=== PATIENT | female | born 1980 | race Caucasian/White ===

== ENCOUNTER → 2017-08-26 19:44 | Observation (INO) ==
[2017-08-26 16:01] LABS: Bilirubin,Urine Negative (Negative); Blood,Urine Negative (Negative); Clarity,Urine Clear (Clear); Color,Urine Yellow (Yellow); Glucose,Urine (UA) Normal (Normal); Ketones,Urine Negative (Negative); Leukocyte Esterase,Urine Negative (Negative); Nitrite,Urine Negative (Negative); PH,Urine 6.5 pH Units (5.0-8.0); Protein,Urine Negative (Neg-Trace); Specific Gravity,Urine < 1.005 (1.010-1.025); Urobilinogen,Urine Normal (Normal)
[2017-08-26 16:06] LABS: Amphetamine Screen,Urine Negative ng/mL (Cutoff=1000); Barbiturate Screen,Urine Negative ng/mL (Cutoff=200); Benzodiazepines Screen,Urine Negative ng/mL (Cutoff=200); Cannabinoid Screen,Urine Negative ng/mL (Cutoff = 50); Cocaine Screen,Urine Negative ng/mL (Cutoff= 300); Opiate Screen,Urine Negative ng/mL (Cutoff=300); Phencyclidine Screen,Urine Negative ng/mL (Cutoff=25)
[2017-08-26 16:54] LABS: Candida DNA Not Detected (Not Detect); Gardnerella DNA ***DETECTED*** (Not Detect); Trichomonas DNA Not Detected (Not Detect)
--- NOTE | 2017-08-26 19:33 | OB/GYN Progress Note ---
Date of Encounter: 08/26/17 Time of Encounter: 19:25 - Assessment and Plan (1) 31 weeks gestation of Current Visit: Yes Status: Acute FHT tracing reassuring for GA. (2) Placenta previa antepartum in third trimester Current Visit: Yes Status: Acute Complete previa again documented by ultrasound today. Pt has not had any bleeding other than occasional spotting. Precautions given. (3) uterine contractions in third trimester, antepartum Current Visit: Yes Status: Acute Contractions have decreased in frequency and intensity since arrival to triage. FFN negative. Cervical length 3.8. Discharge home with PTL and placenta previa precautions. (4) Bacterial vaginosis Current Visit: Yes Status: Acute Rx flagyl Subjective - Subjective Interval history: 36 year-old presenting at 31 weeks with c/o contractions. She reports the contractions have occurred for the last 2 weeks intermittently. She states they will be every few minutes for about an hour twice per day. They get stronger when she walks but ease up when she rests. She has a known placenta previa but has not had any more than spotting this . No bleeds. Good FM. She does admit to increased, thin, white discharge. No other complaints. Antepartum ROS: movement normal, contractions, no loss of fluid, no vaginal bleeding Objective - Exam FHR: category 1 FHR comments: NST reactive for GA Abdomen: Present: soft, gravid. Absent: tenderness Uterus: Absent: tenderness Cervical dilation: visually closed Comments: SSE with thin, white discharge in vault. Cervix visually closed. Nabothean cyst noted. FFN, vaginosis panel, and pap smear collected. - Labs Labs: Abnormal lab results Ur Specific [place] < 1.005 (1.010-1.025) L 08/26/17 15:20 [place] DNA Probe DETECTED (Not Detect) A 08/26/17 16:00
[~2017-08-26 19:44] MED LIST: Ringers Solution, Lactated 1,000 ML IVC ONE; Ringers Solution, Lactated 1,000 ML ONE
== END | disposition home or self-care (01) ==
LOC: 1NENULAB
PROVIDERS: ADMIT Obstetrics & Gynecology; ATTEND Obstetrics & Gynecology

== ENCOUNTER → 2017-09-21 18:15 | Observation (INO) ==
[2017-09-21 15:18] LABS: Bilirubin,Urine Negative (Negative); Blood,Urine Negative (Negative); Clarity,Urine Clear (Clear); Color,Urine Yellow (Yellow); Glucose,Urine (UA) 100 mg/dL (Normal); Ketones,Urine Negative (Negative); Leukocyte Esterase,Urine Negative (Negative); Nitrite,Urine Negative (Negative); Protein,Urine Negative (Neg-Trace); Specific Gravity,Urine 1.011 (1.010-1.025); Urobilinogen,Urine Normal (Normal)
--- NOTE | 2017-09-21 15:38 | OB/GYN History & Physical ---
Date of Encounter: 09/21/17 Time of Encounter: 15:10 Assessment and Plan (1) 34 weeks gestation of Current visit: Yes Status: Acute (2) uterine contractions in third trimester, antepartum Current visit: No Status: Acute - NST assessment. - CBC - UDS - UA - Urine chlamydia/Gonorrhea test. (3) Vision changes Current visit: Yes Status: Acute BP upon arrival was normotensive. - PIH labs. - UA. - Monitor BP (4) Placenta previa antepartum in third trimester Current visit: No Status: Acute History of Present Illness Chief complaint: Uterine contractions and vision changes HPI: Ms. Boyd is a 36 year old female at 34 5/7 weeks gestation with a PMH of a posterior placenta previa that presents for contractions and vision changes. She says that she has been feeling unusual contractions since 4:00 am yesterday. Her contractions are not regular but are usually 20 minutes apart. The length of the contractions are concerning for her, stating that they last up to 20 minutes sometimes. She denies that the contractions are painful. She also states that the contractions can be alleviated or made worse with positional change. Patient is also complaining of vision changes for the past week. She denies any accompanying BILLS and states she starts to see stars. They come about when she is has been lying in bed. She also says that she starts to get short of breath when her vision changes occur and can also feel her heart racing. She says that she has been under alot of stress lately due to the and being put on bed rest due to the placenta previa. She also says she has trouble being able to sleep throughout her . She was prescribed vistaril for her anxiety but states that she hasn't been taking them for the past 2 weeks. She admits to good movement. She denies vaginal fluid leakage or bleeding. She denies chest pain. She admits to nausea throughout her , but denies vomiting. She denies fever, diarrhea, or dysuria. HepBSAg: non-reactive (05/19/17) HIV Ag/Ab: non-reactive T. Pallidum Ab: negative Rubella Ab: positive Varicella Ab: positive Blood Type: O+ Past Med Surg Social Fam HX - Past Medical History Medical history: other Psychiatric history: anxiety, depression, PTSD - Past Surgical History Surgical History: non-contributory - Social History Smoking Status: Current every day smoker Smokeless Tobacco Status: No Alcohol use: none Drug use: none - Family History Mother Living Status: Still Living Hx Family Cardiac Disorders: Yes (hypertension) Hx Family Endocrine Disorder: Yes (hyperthyroidism) Obstetrical History - Pregnancies : 9 Para: 3 Term: 3 : 0 Ab's: 5 Livin Medications and Allergies Famotidine [Pepcid] 20 mg PO DAILY 09/21/17 [History] Ferrous Sulfate [Iron] 325 mg PO DAILY 09/21/17 [History] HydrOXYzine Pamoate [Vistaril] 50 mg PO HS PRN 09/21/17 [History] Vits #90/Iron Fum/FA [ Formula Tablet] 1 each PO DAILY [History] 3 Allergy/AdvReac Type Severity Reaction Status Date / Time meperidine [From Demerol] Allergy burning Verified 05/04/17 21:05 sensation in veins Exam - Vital Signs Vital signs: BP 109/59 HR: 114 - Constitutional Constitutional: well developed, well nourished, no acute distress, average body habitus - Lungs Respiratory exam: CTAB - Cardiovascular Cardiovascular exam: +S1, +S2, tachycardia (Borderline tachycardia. ) - Abdomen Abdomen: Present: bowel sounds normal, gravid, non tender - Extremities Extremities exam: full ROM, normal capillary refill, normal inspection, radial pulses palpable and symmetrical Deep Tendon Reflex Grade: 2+ Normal - Cervix Dilation: 0 (Closed) Results Abnormal lab results Urine Glucose (UA) 100 mg/dL (Normal) H 09/21/17 15:00 All other labs normal. - VTE Reasons for not Prescribing Prophylaxis: Treatment not Indicated - Low risk for VTE
[2017-09-21 16:49] LABS: Amphetamine Screen,Urine Negative ng/mL (Cutoff=1000); Barbiturate Screen,Urine Negative ng/mL (Cutoff=200); Benzodiazepines Screen,Urine Negative ng/mL (Cutoff=200); Cannabinoid Screen,Urine Negative ng/mL (Cutoff = 50); Cocaine Screen,Urine Negative ng/mL (Cutoff= 300); Opiate Screen,Urine Negative ng/mL (Cutoff=300); Phencyclidine Screen,Urine Negative ng/mL (Cutoff=25)
--- NOTE | 2017-09-21 18:01 | Discharge Summary ---
Outpatient Proc Discharge Plan - Plan Prescriptions: Zolpidem [Ambien] 10 mg PO HS PRN #7 tablet PRN Reason: Insomnia Home Medications: Famotidine [Pepcid] 20 mg PO DAILY 09/21/17 [History] Ferrous Sulfate [Iron] 325 mg PO DAILY 09/21/17 [History] HydrOXYzine Pamoate [Vistaril] 50 mg PO HS PRN 09/21/17 [History] Vits #90/Iron Fum/FA [ Formula Tablet] 1 each PO DAILY [History] Zolpidem [Ambien] 10 mg PO HS PRN #7 tablet 09/21/17 [Rx]
[~2017-09-21 18:15] MED LIST changes: +Betamethasone Acet/SodPhos 6 MG/ML MDV IM ONE; -Ringers Solution, Lactated 1,000 ML IVC ONE; -Ringers Solution, Lactated 1,000 ML ONE; +hydrOXYzine pamoate 25 MG CAPSULE PO ONE
[2017-09-21 20:46] LABS: Creatinine,Urine 27 mg/dL; Protein/Creatinine Ratio,Urine 0.26 mg/mg (0-0.20)
== END | disposition home or self-care (01) ==
LOC: 1NENULAB
PROVIDERS: ADMIT Obstetrics & Gynecology; ATTEND Obstetrics & Gynecology

== ENCOUNTER 2017-09-28 00:48 | Inpatient (IN) ==
[2017-09-27 17:53] LABS: Basophils # 0.1 K/mcL (0.0-0.2); Basophils % 0.5 %; Eosinophils # 0.4 K/mcL (0.0-0.6); Eosinophils % 1.9 %; Hematocrit 32.2 % (35.3-44.9); Hemoglobin 10.9 g/dL (11.5-15.4); Immature Granulocytes % 1.7 % (0-4); Lymphocytes # 3.9 K/mcL (0.6-4.6); Mean Corpuscular HGB Conc 33.9 g/dL (31.6-35.5); Mean Corpuscular Hemoglobin 28.5 pg (28.0-33.3); Mean Corpuscular Volume 84.1 fL (83.0-100.0); Mean Platelet Volume 9.5 fL (9.4-12.4); Monocytes # 1.8 K/mcL (0.0-1.3); Monocytes % 8.8 %; Neutrophils # 14.1 K/mcL (1.6-8.9); Platelet Count 501 K/mcL (140-400); Red Blood Count 3.83 M/mcL (3.82-4.97); Red Cell Distribution Width 13.7 % (11.5-14.5); Segmented Neutrophils % 68.1 %
[2017-09-27 18:16] LABS: Bilirubin,Urine Negative (Negative); Blood,Urine Negative (Negative); Clarity,Urine Cloudy (Clear); Color,Urine Yellow (Yellow); Glucose,Urine (UA) Normal (Normal); Ketones,Urine Negative (Negative); Leukocyte Esterase,Urine Negative (Negative); Nitrite,Urine Negative (Negative); PH,Urine 6.5 pH Units (5.0-8.0); Protein,Urine Negative (Neg-Trace); Specific Gravity,Urine 1.013 (1.010-1.025); Urobilinogen,Urine Normal (Normal)
[2017-09-27 18:17] LABS: Bacteria,Urine Few per hpf (None-Few); Hyaline Casts,Urine None Seen per lpf (None-Few); RBC,Urine 0-3 per hpf (0-3); Squamous Epithelial Cell,Urine Many per lpf (None-Few); WBC,Urine 0-3 per hpf (0-3)
[2017-09-27 18:19] LABS: Amphetamine Screen,Urine Negative ng/mL (Cutoff=1000); Barbiturate Screen,Urine Negative ng/mL (Cutoff=200); Benzodiazepines Screen,Urine Negative ng/mL (Cutoff=200); Cannabinoid Screen,Urine Negative ng/mL (Cutoff = 50); Cocaine Screen,Urine Negative ng/mL (Cutoff= 300); Opiate Screen,Urine Negative ng/mL (Cutoff=300); Phencyclidine Screen,Urine Negative ng/mL (Cutoff=25)
--- NOTE | 2017-09-27 18:46 | Anesthesia Evaluation PreOp ---
Date of Encounter: 09/27/17 Time of Encounter: 18:43 - Past History Planned Operation: csection Cardiac History: Denies any Significant Hx Pulmonary History: Smoker (1 pack per day), Asthma TRIMMER SAWYER History: Denies Any Significant HX Other Medical History: GERD, Other (PTSD) Anesthesia History: No Prior Anesthetic Complications, Past Anesthesia (Breast implantation, abdominoplasty, left wrist) : Yes (35 plus 4, ) Alcohol Use: none Drug use: none Medications and Allergies Famotidine [Pepcid] 20 mg PO DAILY 09/21/17 [History] Ferrous Sulfate [Iron] 325 mg PO DAILY 09/21/17 [History] HydrOXYzine Pamoate [Vistaril] 50 mg PO HS PRN 09/21/17 [History] Vits #90/Iron Fum/FA [ Formula Tablet] 1 each PO DAILY [History] Zolpidem [Ambien] 10 mg PO HS PRN #7 tablet 09/21/17 [Rx] 3 Allergy/AdvReac Type Severity Reaction Status Date / Time meperidine [From Demerol] Allergy burning Verified 09/27/17 17:49 sensation in veins - Meds/Allergy Pre-op Review Medications Reviewed: Yes Allergies Reviewed: Yes Beta Blockers on Current Med List: No Anesthesia Results - Labs 09/27/17 17:38 Anesthesia Exam bp 125/80 hr 121 rr 20 Height: 60 Weight: 75 NPO (# of Hours): pumplin pie at noon - HEENT Pupil (Motor): Pupils equal Mallampati: II Teeth: Normal Oral Opening: Greater than 3 - TRIMMER SAWYER LOC: Oriented TRIMMER SAWYER Motor: Normal RUE, Normal LUE, Normal RLE, Normal LLE, Normal Face TRIMMER SAWYER Sensory: Normal: RUE, LUE, RLE, LLE, Face - Cardiac Rhythm: Regular Murmur: None JVD: No Carotid Bruit: No - Pulmonary Breath Sounds: bilateral Clear Respiratory Effort: Symmetrical Anesthesia Assess/Plan ASA Score: 2 Modified [place] Scale for Level of Consciousness: Cooperative, oriented, and tranquil Anesthetic Plan: Regional Monitoring Plan: Standard Monitors Recovery Plan: PACU
--- NOTE | 2017-09-27 19:33 | OB/GYN History & Physical ---
Date of Encounter: 09/27/17 Time of Encounter: 19:29 Assessment and Plan (1) 35 weeks gestation of Current visit: Yes Status: Acute Prob list: vasa previa, 35+ weeks gestation I counseled patient that given the fact that she is having painful contractions , with a BPP 05/01 and her vasa previa, I don't see any benefit of keeping her beto since she has been scheduled for this Wednesday. Consent documenting risks of surgery signed, Labs including type and cross sent Anesthesia informed History of Present Illness Chief complaint: ctxs HPI: Ms. Boyd is a 36 year old female who presents to labor and delivery from the office after a non reactive NST and BPP 04/29 (2 off for breathing). She has vasa previa and was scheduled to be delivered on 10/01. She is reporting painful contractions, no LOF or bleeding, she has a previa that is now posterior. Past Med Surg Social Fam HX - Past Medical History Medical history: asthma Psychiatric history: anxiety, depression, PTSD, other - Past Surgical History Surgical History: non-contributory - Social History Smoking Status: Current every day smoker Packs per day: 4-5 cigs daily Smokeless Tobacco Status: No Alcohol use: none Drug use: none - Family History Mother Adopted: No Living Status: Still Living Hx Family Cardiac Disorders: Yes (htn) Hx Family Endocrine Disorder: Yes (hyperthyroidism) Obstetrical History - Pregnancies : 9 Para: 3 Ab's: 5 Livin Medications and Allergies Famotidine [Pepcid] 20 mg PO DAILY 09/21/17 [History] Ferrous Sulfate [Iron] 325 mg PO DAILY 09/21/17 [History] HydrOXYzine Pamoate [Vistaril] 50 mg PO HS PRN 09/21/17 [History] Vits #90/Iron Fum/FA [ Formula Tablet] 1 each PO DAILY [History] Zolpidem [Ambien] 10 mg PO HS PRN #7 tablet 09/21/17 [Rx] 3 Allergy/AdvReac Type Severity Reaction Status Date / Time meperidine [From Demerol] Allergy burning Verified 09/27/17 17:49 sensation in veins Review of System OB All systems PM: reviewed and no additional remarkable complaints except as stated Exam - Constitutional Constitutional: well developed - HEENT HEENT: PERRL - Neck Neck exam: full ROM - Lungs Respiratory exam: CTAB - Cardiovascular Cardiovascular exam: RRR - Abdomen Abdomen: Present: gravid - Extremities Extremities exam: normal inspection Results Result Diagrams: 09/27/17 17:38 Abnormal lab results WBC 20.7 K/mcL (4.3-11.1) H 09/27/17 17:38 Hgb 10.9 g/dL (11.5-15.4) L 09/27/17 17:38 Hct 32.2 % (35.3-44.9) L 09/27/17 17:38 Plt Count 501 K/mcL (140-400) H 09/27/17 17:38 Neutrophils # 14.1 K/mcL (1.6-8.9) H 09/27/17 17:38 Monocytes # 1.8 K/mcL (0.0-1.3) H 09/27/17 17:38 Urine Clarity Cloudy (Clear) A 09/27/17 18:04 Ur Squamous Epith Cells Many per lpf (None-Few) H 09/27/17 18:04 All other labs normal. - VTE Reasons for not Prescribing Prophylaxis: Treatment not Indicated - Low risk for VTE
--- NOTE | 2017-09-27 21:48 | OB/GYN Procedure Note ---
Section - Date of procedure: 09/27/17 Preop diagnosis: other (Vasa previa) Post-op diagnosis: same Procedure: section, primary low transverse Surgeon: Hanny Donald Estimated blood loss (cc): 900 Anesthesiologist: Wesly Garner [employer] Professor: Keven Sky Anesthesia Type: Spinal section complications: none Disposition: L&D Recovery Room Specimens: Cord blood, Cord gasses - (s) A Delivery Date: 09/27/17 Delivery Time: 20:32 Presentation: transverse lie Gender: Male Viability: Viable Shoulder Dystocia: not encountered Placenta: spontaneous Cord: 3 umbilical vessels - Narrative Narrative: Patient was brought to the operating room and was given satisfactory spinal anesthesia. The abdomen was prepped and draped in a sterile fashion. A Pfannenstiel incision was made and carried sharply down to the level of fascia. The fascia was incised transversely. The fascia was dissected away from the underlying rectus muscles. With sharp and blunt dissection, rectus muscles were divided in midline. The perineum was entered bluntly. The incision was carried vertically with scissors. Transverse incision was made across the bladder peritoneum. The bladder was dissected away from the underlying lower uterine segment. Bladder retractor was placed to protect the bladder. The lower uterine segment was entered sharply with a scalpel. Incision was manually extended. Clear amniotic fluid was encountered. was noted to be transverse and with careful maneuvers, the infant's head was pulled up and delivered. The cord was clamped and cut. The was passed off to the nurses, APGARS 2/7. Placenta was extracted completely and found to be intact. Uterus was explored and found to be empty. Uterus was delivered through the abdominal incision and massaged vigorously. Intravenous Pitocin was administered. Clamps were placed about the margins of the uterine incision, which was closed primarily with a running locking stitch of 0 Vicryl with adequate hemostasis. Secondary running locking stitch was placed for extra strength to the wound. The uterus was returned to its proper anatomic position in the abdomen. The fascia was closed with a simple running stitch of 0 vicryl. The subcutaneous tissue was closed with 3-0 vicryl. The skin was closed with running subcuticular of 4-0 vicryl. Uterus was expressed of its contents. Patient was brought to the recovery room in satisfactory condition. There were no complications. There was 1000 cc of blood loss. All sponge, needle, and instrument counts were reported to be correct.
[2017-09-27] MEDS: *HR* HYDROmorphone (PF) 1 MG/ML SYRINGE IVP PRN ×3 (21:55→22:50)
[2017-09-27 23:13] LABS: Basophils % 0.3 %; Immature Granulocytes % 1.5 % (0-4); Mean Corpuscular Volume 85.4 fL (83.0-100.0); Mean Platelet Volume 9.2 fL (9.4-12.4)
[2017-09-27 23:15] LABS: Basophils # 0.1 K/mcL (0.0-0.2); Eosinophils # 0.1 K/mcL (0.0-0.6); Eosinophils % 0.3 %; Hematocrit 24.5 % (35.3-44.9); Hemoglobin 8.1 g/dL (11.5-15.4); Lymphocytes # 3.8 K/mcL (0.6-4.6); Lymphocytes % 11.5 %; Mean Corpuscular HGB Conc 33.1 g/dL (31.6-35.5); Mean Corpuscular Hemoglobin 28.2 pg (28.0-33.3); Monocytes # 1.3 K/mcL (0.0-1.3); Monocytes % 3.8 %; Neutrophils # 27.4 K/mcL (1.6-8.9); Platelet Count 279 K/mcL (140-400); Red Blood Count 2.87 M/mcL (3.82-4.97); Red Cell Distribution Width 13.7 % (11.5-14.5); Segmented Neutrophils % 82.6 %
[2017-09-27 23:34] LABS: Platelet Estimate Normal (Normal)
[~2017-09-28 00:48] MED LIST changes: +*HR* Midazolam HCl 2 MG/2 ML VIAL IVP ONE; +*HR* Midazolam HCl 2 MG/2 ML VIAL ONE; +*HR* Promethazine 25 MG/ML VIAL IVP PRN; +Acetaminophen IV 1,000 MG/100 ML INFUS..BTL IVPB ONE; -Betamethasone Acet/SodPhos 6 MG/ML MDV IM ONE; +Betamethasone Acet/SodPhos 6 MG/ML MDV IM SCH; +EPHEDrine 50 MG/ML VIAL ONE; +Ketorolac 30 MG/ML VIAL IVP ONE; +Metoclopramide 10 MG/2 ML VIAL IVP PRN; +Ondansetron 4 MG/2 ML VIAL IVP ONE; +Ondansetron 4 MG/2 ML VIAL IVP PRN; +Oxytocin 20 units/ LR 1000 mL 20 UNIT/1,000 ML BAG IVC ONE; +Oxytocin 20 units/ LR 1000 mL 20 UNIT/1,000 ML BAG IVC SCH; +Ringers Solution, Lactated 1,000 ML IVC ONE; +Ringers Solution, Lactated 1,000 ML ONE; +Sennosides 8.6 MG TABLET PO PRN; +Simethicone 80 MG TAB.CHEW PO PRN; -hydrOXYzine pamoate 25 MG CAPSULE PO ONE
[2017-09-28 01:34] LABS: Basophils # 0.1 K/mcL (0.0-0.2); Basophils % 0.3 %; Hematocrit 23.1 % (35.3-44.9); Hemoglobin 7.9 g/dL (11.5-15.4); Immature Granulocytes % 1.2 % (0-4); Lymphocytes # 2.1 K/mcL (0.6-4.6); Lymphocytes % 6.8 %; Mean Corpuscular HGB Conc 34.2 g/dL (31.6-35.5); Mean Corpuscular Hemoglobin 28.9 pg (28.0-33.3); Mean Corpuscular Volume 84.6 fL (83.0-100.0); Mean Platelet Volume 9.2 fL (9.4-12.4); Monocytes # 2.1 K/mcL (0.0-1.3); Monocytes % 6.7 %; Neutrophils # 26.5 K/mcL (1.6-8.9); Platelet Count 257 K/mcL (140-400); Red Blood Count 2.73 M/mcL (3.82-4.97); Red Cell Distribution Width 13.6 % (11.5-14.5)
[2017-09-28] MEDS: *HR* OxyCODONE/APAP 5/325 TABLET PO PRN ×2 (01:57→05:35)
[2017-09-28 02:01] LABS: Platelet Estimate Normal (Normal)
[2017-09-28] MEDS ORDERED: 0.9 % Sodium Chloride 1,000 ML ONE (02:27)
[2017-09-28] MEDS: Ibuprofen 600 MG TABLET PO PRN ×2 (08:23→21:35)
[2017-09-28] MEDS ORDERED: cefOXitin 2,000 MG in Water for inj. (sterile) 10 ML IVP SCH ×2 (09:00→16:00)
[2017-09-28] MEDS ORDERED: MetroNIDAZOLE 500 MG/100 ML 500 MG/100 ML BAG IVPB SCH ×2 (09:00→16:00)
--- NOTE | 2017-09-28 09:40 | OB/GYN Progress Note ---
Date of Encounter: 09/28/17 Time of Encounter: 09:38 - Assessment and Plan (1) Status post delivery Current Visit: Yes Status: Acute Patient POD #1 section for placental/vasa previa. Patient reports minimal lochia. She isresting comfortably. Pain meds wearing off too soon. /pumping well. -Increase percocet from 5 to 10. -Advance diet as tolerated. (2) Anemia Current Visit: Yes Status: Acute Patient's pallor has improved. She reports her dizziness and lightheadedness has improved. Hemoglobin stablized after surgery (8.1 to 7.9). Patient is still tachycardic, though improving. Most recent blood pressure 95/63. She just received her second unit of PRBC. -FU H and H at 1300. -Continue to trend vitals. Qualifiers: Anemia type: other cause Other causes of anemia: acute posthemorrhagic Qualified Code(s): D62 - Acute posthemorrhagic anemia (3) Leukocytosis Current Visit: Yes Status: Acute Likely secondary to antepartum steroid administration. -Due to patient's blood loss and transfusion, we will administer antibiotics inlcuding mefoxin and flagyl, despite her lack of fever to cover for potential infection. Qualifiers: Leukocytosis type: unspecified Qualified Code(s): D72.829 - Elevated white blood cell count, unspecified Subjective - Subjective Principal diagnosis: Vasa Previa/ S/P Delivery Interval history: 36 yo female s/p for vasa previa and painful contractions. Patient reports inadequate pain control. She wishes to see her baby. She states her dizziness and lightheadedness has improved since transfusion. She does report exhaustion. Patient reports: appetite normal, voiding normally, pain poorly controlled, ambulating normally : in NICU, nursing well (CPAP in NICU) Objective - Vital Signs Latest vital signs: Vital Signs Temp Pulse Resp BP Pulse Ox 09/28/17 08:45 97.8 F 117 16 93/55 96 09/28/17 08:00 98.5 F 109 14 111/72 95 09/28/17 06:59 97.7 F 114 18 105/66 98 09/28/17 06:16 97.9 F 18 101/60 97 09/28/17 05:48 98.7 F 122 20 91/50 96 09/28/17 05:44 98.7 F 122 20 91/50 96 09/28/17 04:51 98.1 F 118 20 102/71 95 09/28/17 03:07 98.2 F 20 107/68 09/28/17 02:52 97.6 F 92/61 97 09/28/17 02:03 98.7 F 138 20 95/61 96 09/28/17 01:18 98.6 F 142 20 100/67 96 09/28/17 00:45 97.7 F 144 18 94/61 97 Intake and Output 09/27/17 09/28/17 09/28/17 23:59 07:59 15:59 Intake Total 1133 / 1133 375 / 375 Output Total 275 / 275 Balance 858 / 858 375 / 375 Intake: Oral 800 / 800 Blood Product 333 / 333 375 / 375 Rbcs Leuko Poor As-1 Unit 333 / 333 [id number] Rbcs Leuko Poor As-1 Unit 0 / 0 375 / 375 [id number] Output: Catheter 275 / 275 Other: Weight 75.7 kg - Exam Lungs: bilateral: normal Chest: Normal S1, Normal S2 Extremities: Present: normal. Absent: edema Abdomen: Present: soft, tenderness Incision: Present: other (Did not visually inspect the incision as patient has abdominal binder in place with post operative dressing.) Uterus: Present: normal, firm. Absent: bogginess, tenderness Fundal Height: 0 (At the umbilicus) - Labs Labs: Laboratory Results - last 24 hr 09/27/17 09/27/17 09/27/17 17:38 17:38 18:04 WBC 20.7 H RBC 3.83 Hgb 10.9 L Hct 32.2 L MCV 84.1 MCH 28.5 MCHC 33.9 RDW 13.7 Plt Count 501 H MPV 9.5 Immature Gran % 1.7 Seg Neutrophils % 68.1 Lymphocytes % 19.0 Monocytes % 8.8 Eosinophils % 1.9 Basophils % 0.5 Neutrophils # 14.1 H Lymphocytes # 3.9 Monocytes # 1.8 H Eosinophils # 0.4 Basophils # 0.1 Platelet Estimate Urine Color Urine Clarity Urine pH Ur Specific [place] Urine Protein Urine Glucose (UA) Urine Ketones Urine Blood Urine Nitrite Urine Bilirubin Urine Urobilinogen Ur Leukocyte Esterase Urine Microscopic RBC Urine Microscopic WBC Ur Squamous Epith Cells Urine Bacteria Hyaline Casts Ur Culture Indicated? Urine Opiates Screen Negative Ur Barbiturates Screen Negative Ur Phencyclidine Scrn Negative Ur Amphetamines Screen Negative U Benzodiazepines Scrn Negative Urine Cocaine Screen Negative U Marijuana (THC) Screen Negative Blood Type O POSITIVE Antibody Screen NEGATIVE Crossmatch See Detail 09/27/17 09/27/17 09/28/17 18:04 23:02 01:15 WBC 33.2 H* D 31.2 H* RBC 2.87 L 2.73 L Hgb 8.1 L D 7.9 L Hct 24.5 L 23.1 L MCV 85.4 84.6 MCH 28.2 28.9 MCHC 33.1 34.2 RDW 13.7 13.6 Plt Count 279 257 MPV 9.2 L 9.2 L Immature Gran % 1.5 1.2 Seg Neutrophils % 82.6 85.0 Lymphocytes % 11.5 6.8 Monocytes % 3.8 6.7 Eosinophils % 0.3 0.0 Basophils % 0.3 0.3 Neutrophils # 27.4 H 26.5 H Lymphocytes # 3.8 2.1 Monocytes # 1.3 2.1 H Eosinophils # 0.1 0.0 Basophils # 0.1 0.1 Platelet Estimate Normal Normal Urine Color Yellow Urine Clarity Cloudy A Urine pH 6.5 Ur Specific [place] 1.013 Urine Protein Negative Urine Glucose (UA) Normal Urine Ketones Negative Urine Blood Negative Urine Nitrite Negative Urine Bilirubin Negative Urine Urobilinogen Normal Ur Leukocyte Esterase Negative Urine Microscopic RBC 0-3 Urine Microscopic WBC 0-3 Ur Squamous Epith Cells Many H Urine Bacteria Few Hyaline Casts None Seen Ur Culture Indicated? NO Urine Opiates Screen Ur Barbiturates Screen Ur Phencyclidine Scrn Ur Amphetamines Screen U Benzodiazepines Scrn Urine Cocaine Screen U Marijuana (THC) Screen Blood Type Antibody Screen Crossmatch Attestation Statement - Attestation Attestation: I examined this patient and my medical decision-making was reviewed with the Resident Physician. I agree with the documented findings, disposition and treatment plan as described. Yolie Rankin CNM
[2017-09-28] MEDS ORDERED: cefOXitin 2,000 MG in Water for inj. (sterile) 10 ML IVPB SCH (09:45)
[2017-09-28] MEDS: *HR* OxyCODONE/APAP 10/325 TABLET PO PRN ×3 (09:48→21:33)
--- NOTE | 2017-09-28 11:56 | Event Note ---
Date of Encounter: 09/28/17 Time of Encounter: 11:55 Patient's nurse notes that she is beginning to have an extreme increase in anxiety. With her history of PTSD and anxiety, I am placing a psych consult.
[2017-09-28 12:37] LABS: Basophils # 0.1 K/mcL (0.0-0.2); Basophils % 0.2 %; Hematocrit 25.7 % (35.3-44.9); Hemoglobin 8.9 g/dL (11.5-15.4); Immature Granulocytes % 1.3 % (0-4); Lymphocytes # 2.8 K/mcL (0.6-4.6); Lymphocytes % 11.8 %; Mean Corpuscular HGB Conc 34.6 g/dL (31.6-35.5); Mean Corpuscular Hemoglobin 29.4 pg (28.0-33.3); Mean Corpuscular Volume 84.8 fL (83.0-100.0); Mean Platelet Volume 9.5 fL (9.4-12.4); Monocytes # 2.7 K/mcL (0.0-1.3); Monocytes % 11.4 %; Neutrophils # 18.1 K/mcL (1.6-8.9); Nucleated Red Blood Cells 0.2 /100 WBC (0); Platelet Count 202 K/mcL (140-400); Red Blood Count 3.03 M/mcL (3.82-4.97); Red Cell Distribution Width 13.3 % (11.5-14.5); Segmented Neutrophils % 75.3 %
--- NOTE | 2017-09-28 17:22 | Consult Note ---
Date of Encounter: 09/28/17 Time of Encounter: 17:13 Assessment & Recommendation (1) Post traumatic stress disorder (PTSD) Current visit: Yes Status: Acute Assessment & Recommendation: Discussed multiple options but client's preference is to restart low dose Klonopin on an as needed basis given her success with this medication in the past. She is aware this is a L3 medication and a lot of time was spent discussing the risks and benefits. is in agreement with starting a low dose of this medication. Client intends to breast feed at this time. Spoke with Addressing Machine Operator who is in agreement with client receiving treatment. Recommend 0.5mg daily as needed for extreme anxiety with outpatient [facility]. History of Present Illness Requesting Physician: Hanny Donald MD Reason for consult: Anxiety History of present illness: Ms. Boyd is a 36 year old female with a psych history significant for PTSD. She has been under the care of Psychiatrists in the past but has not received any treatment since February. She stopped medications due to . Her son was just born at 35 weeks. She is now experiencing extreme anxiety and wants to restart meds. She denies SI/HI and has no thoughts of harming herself, her son, or anyone else. However, her anxiety is to the point that she is unsure if she can adequately care for him. She does intend to breast feed. Her son was born early at 35 weeks. However, after speaking with the Addressing Machine Operator it seems that her son is no less capable of tolerating meds in breast milk than a full term baby. Discussed options with client. Most all psych meds are L2 and L3 with the majority falling into the L3 category. Reviewed the L2 options including SSRIs and Seroquel. Client was not interested due to poor clinical responses in the past. Client reported the most success with Klonopin. Has taken high doses in the past.....client remembers up to 2mg four times a day. Discussed the possibility or respiratory suppression in both her and herself at those doses. Discussed taking just 0.5mg on an as needed basis. Client was agreeable to that as was her . Client indicated her strong preference for this over alternative options including all L2 medications. Risks of side effects and potential harm to baby were discussed in detail. CC: Hanny Donald MD Past Med Surg Social Fam HX - Past Medical History Medical history: asthma - Past Psychiatric History Psychiatric history: Reports: anxiety, PTSD Family psychiatric history: Unknown Family History of Suicide: Unknown - Past Surgical History Surgical History: non-contributory - Social History Smoking Status: Current every day smoker Smokeless Tobacco Status: No Alcohol use: none Drug use: none - Family History Mother Adopted: No Living Status: Still Living Hx Family Cardiac Disorders: Yes (htn) Hx Family Endocrine Disorder: Yes (hyperthyroidism) Medications & Allergies Famotidine [Pepcid] 20 mg PO DAILY 09/21/17 [History] Ferrous Sulfate [Iron] 325 mg PO DAILY 09/21/17 [History] HydrOXYzine Pamoate [Vistaril] 50 mg PO HS PRN 09/21/17 [History] Vits #90/Iron Fum/FA [ Formula Tablet] 1 each PO DAILY [History] Zolpidem [Ambien] 10 mg PO HS PRN #7 tablet 09/21/17 [Rx] 3 Allergy/AdvReac Type Severity Reaction Status Date / Time meperidine [From Demerol] Allergy burning Verified 09/27/17 17:49 sensation in veins Review of Systems Constitutional: Denies: fever, chills, weakness, weight change Eyes: Denies: eye pain, vision change Ears, Nose, Throat: Denies: ear pain, throat pain, dental pain, hearing loss, congestion Cardiovascular: Denies: chest pain, palpitations, dyspnea on exertion Respiratory: Denies: cough, dyspnea, wheezes Gastrointestinal: Denies: abdominal pain, nausea, vomiting, diarrhea, constipation Genitourinary male: Denies: urgency, dysuria, frequency, genital lesions Genitourinary female: Denies: urgency, dysuria, frequency, abnormal menses, dyspareunia Musculoskeletal: Reports: back pain, myalgia Integumentary: Denies: rash, lesions, pruritus Neurological: Denies: headache, weakness, numbness, memory loss Endocrine: Denies: fatigue, heat or cold intolerance Hematologic/Lymphatic: Denies: easy bruising, lymphadenopathy Allergic/Immunologic: Denies: urticaria, itchy eyes Mental Status Exam Patient orientation: Yes Person, Yes Time, Yes Place Level of alertness: Alert Patient appearance: Appropriate Behavior: calm, cooperative Psychomotor activity: Normal Eye contact: Maintains Eye Contact Mood description: Anxious Affect description: congruent with mood Speech pattern: Normal rate, Normal rhythm, Normal tone Speech volume: Normal Thought process: Linear, Goal Oriented Thought content: No Suicidal ideation, No Homicidal ideation, No Overt delusions Perceptual disturbances: No Auditory hallucinations, No Visual hallucinations Attention span: Capable of Focused Attention Memory description: Grossly Intact Patient reliability: Reliable Historian Intelligence estimate: Average Judgment: Limited Insight: Partial Results - Vital Signs Vital signs: Temp Pulse Resp BP Pulse Ox 98.3 F 108 16 91/55 95 09/28/17 12:50 09/28/17 12:50 09/28/17 12:50 09/28/17 12:50 09/28/17 12:50 - Drug Levels and Toxicology Drug Levels and Toxicology: Drug Levels and Toxicity 09/27/17 18:04 Urine Opiates Screen Negative Ur Barbiturates Screen Negative Ur Phencyclidine Scrn Negative Ur Amphetamines Screen Negative U Benzodiazepines Scrn Negative Urine Cocaine Screen Negative U Marijuana (THC) Screen Negative - Labs Labs: Laboratory Last Values WBC 24.0 K/mcL (4.3-11.1) H 09/28/17 12:31 RBC 3.03 M/mcL (3.82-4.97) L 09/28/17 12:31 Hgb 8.9 g/dL (11.5-15.4) L 09/28/17 12:31 Hct 25.7 % (35.3-44.9) L 09/28/17 12:31 MCV 84.8 fL (83.0-100.0) 09/28/17 12:31 MCH 29.4 pg (28.0-33.3) 09/28/17 12:31 MCHC 34.6 g/dL (31.6-35.5) 09/28/17 12:31 RDW 13.3 % (11.5-14.5) 09/28/17 12:31 Plt Count 202 K/mcL (140-400) 09/28/17 12:31 MPV 9.5 fL (9.4-12.4) 09/28/17 12:31 Immature Gran % 1.3 % (0-4) 09/28/17 12:31 Seg Neutrophils % 75.3 % 09/28/17 12:31 Lymphocytes % 11.8 % 09/28/17 12:31 Monocytes % 11.4 % 09/28/17 12:31 Eosinophils % 0.0 % 09/28/17 12:31 Basophils % 0.2 % 09/28/17 12:31 Neutrophils # 18.1 K/mcL (1.6-8.9) H 09/28/17 12:31 Lymphocytes # 2.8 K/mcL (0.6-4.6) 09/28/17 12:31 Monocytes # 2.7 K/mcL (0.0-1.3) H 09/28/17 12:31 Eosinophils # 0.0 K/mcL (0.0-0.6) 09/28/17 12:31 Basophils # 0.1 K/mcL (0.0-0.2) 09/28/17 12:31 Nucleated RBCs/100 WBC 0.2 /100 WBC (0) H 09/28/17 12:31 Platelet Estimate Normal (Normal) 09/28/17 01:15 Urine Color Yellow (Yellow) 09/27/17 18:04 Urine Clarity Cloudy (Clear) A 09/27/17 18:04 Urine pH 6.5 pH Units (5.0-8.0) 09/27/17 18:04 Ur Specific [place] 1.013 (1.010-1.025) 09/27/17 18:04 Urine Protein Negative mg/dL (Neg-Trace) 09/27/17 18:04 Urine Glucose (UA) Normal mg/dL (Normal) 09/27/17 18:04 Urine Ketones Negative mg/dL (Negative) 09/27/17 18:04 Urine Blood Negative (Negative) 09/27/17 18:04 Urine Nitrite Negative (Negative) 09/27/17 18:04 Urine Bilirubin Negative (Negative) 09/27/17 18:04 Urine Urobilinogen Normal mg/dL (Normal) 09/27/17 18:04 Ur Leukocyte Esterase Negative (Negative) 09/27/17 18:04 Urine Microscopic RBC 0-3 per hpf (0-3) 09/27/17 18:04 Urine Microscopic WBC 0-3 per hpf (0-3) 09/27/17 18:04 Ur Squamous Epith Cells Many per lpf (None-Few) H 09/27/17 18:04 Urine Bacteria Few per hpf (None-Few) 09/27/17 18:04 Hyaline Casts None Seen per lpf (None-Few) 09/27/17 18:04 Ur Culture Indicated? NO (NO) 09/27/17 18:04 Urine Opiates Screen Negative ng/mL (Wafiui=605) 09/27/17 18:04 Ur Barbiturates Screen Negative ng/mL (Djqsyl=905) 09/27/17 18:04 Ur Phencyclidine Scrn Negative ng/mL (Cutoff=25) 09/27/17 18:04 Ur Amphetamines Screen Negative ng/mL (Dundrc=5229) 09/27/17 18:04 U Benzodiazepines Scrn Negative ng/mL (Xebkku=114) 09/27/17 18:04 Urine Cocaine Screen Negative ng/mL (Cutoff= 300) 09/27/17 18:04 U Marijuana (THC) Screen Negative ng/mL (Cutoff = 50) 09/27/17 18:04 Blood Type O POSITIVE 09/27/17 17:38 Antibody Screen NEGATIVE 09/27/17 17:38 Crossmatch See Detail 09/27/17 17:38
[2017-09-28] MEDS: Cefuroxime PO 500 MG TABLET PO SCH (19:29)
--- NOTE | 2017-09-28 19:51 | Anesthesia Evaluation Post Op ---
Date of Encounter: 09/28/17 Time of Encounter: 10:35 - Vital Signs Vital Signs: Vital Signs - 24 hr 09/28/17 00:45 09/28/17 01:18 09/28/17 02:03 Temperature 97.7 F 98.6 F 98.7 F Pulse Rate 144 142 138 Respiratory Rate 18 20 20 Blood Pressure 94/61 100/67 95/61 O2 Sat by Pulse Oximetry 97 96 96 09/28/17 02:52 09/28/17 03:07 09/28/17 04:51 Temperature 97.6 F 98.2 F 98.1 F Pulse Rate 118 Respiratory Rate 20 20 Blood Pressure 92/61 107/68 102/71 O2 Sat by Pulse Oximetry 97 95 09/28/17 05:44 09/28/17 05:48 09/28/17 06:16 Temperature 98.7 F 98.7 F 97.9 F Pulse Rate 122 122 Respiratory Rate 20 20 18 Blood Pressure 91/50 91/50 101/60 O2 Sat by Pulse Oximetry 96 96 97 09/28/17 06:59 09/28/17 08:00 09/28/17 08:45 Temperature 97.7 F 98.5 F 97.8 F Pulse Rate 114 109 117 Respiratory Rate 18 14 16 Blood Pressure 105/66 111/72 93/55 O2 Sat by Pulse Oximetry 98 95 96 09/28/17 12:50 09/28/17 17:00 Temperature 98.3 F 98.5 F Pulse Rate 108 111 Respiratory Rate 16 16 Blood Pressure 91/55 101/67 O2 Sat by Pulse Oximetry 95 95 - Lungs Lungs: Clear Ascult./Percussion - Airway Airway: Non-obstructed - Cardiovascular Regular Rate - Mental Status Mental Status: Alert & Oriented, Answers Appropriately - Pain Pain Scale: 3 Pain Scale used: Numeric (1 - 10) - Nausea Vomiting Nausea Vomiting: Not Present - Hydration Hydration: Tolerates oral liquids, Ice chips - Discharge PostOp Status: Transfer Patient to floor Attestation: Patient alert and communicative. MOEx4.
[2017-09-28] MEDS ORDERED: clonazePAM 0.5 MG TABLET PO PRN (20:31)
[2017-09-28] MEDS: metroNIDAZOLE 500 MG TABLET PO SCH (21:34)
[2017-09-29] MEDS: Ibuprofen 600 MG TABLET PO PRN ×3 (05:40→18:04)
[2017-09-29] MEDS: *HR* OxyCODONE/APAP 10/325 TABLET PO PRN ×4 (05:40→22:14)
[2017-09-29 06:30] LABS: Basophils # 0.1 K/mcL (0.0-0.2); Basophils % 0.4 %; Eosinophils % 0.1 %; Hematocrit 24.1 % (35.3-44.9); Hemoglobin 8.4 g/dL (11.5-15.4); Immature Granulocytes % 1.5 % (0-4); Lymphocytes # 3.5 K/mcL (0.6-4.6); Lymphocytes % 16.6 %; Mean Corpuscular HGB Conc 34.9 g/dL (31.6-35.5); Mean Corpuscular Hemoglobin 29.6 pg (28.0-33.3); Mean Corpuscular Volume 84.9 fL (83.0-100.0); Mean Platelet Volume 9.5 fL (9.4-12.4); Monocytes # 2.4 K/mcL (0.0-1.3); Monocytes % 11.3 %; Neutrophils # 14.8 K/mcL (1.6-8.9); Nucleated Red Blood Cells 0.2 /100 WBC (0); Platelet Count 206 K/mcL (140-400); Red Blood Count 2.84 M/mcL (3.82-4.97); Red Cell Distribution Width 13.7 % (11.5-14.5); Segmented Neutrophils % 70.1 %
[2017-09-29] MEDS: Cefuroxime PO 500 MG TABLET PO SCH ×2 (07:23→18:38)
--- NOTE | 2017-09-29 08:50 | OB/GYN Progress Note ---
Date of Encounter: 09/29/17 Time of Encounter: 08:45 - Assessment and Plan (1) Status post delivery Current Visit: Yes Status: Acute Patient POD #2 section for placental/vasa previa. Patient reports minimal lochia, mild amount in pad. Patient expressing concern for edema. We will hold on lasix now as patient is and does not want to jeopardize milk supply. -hgb stable -Patient meeting post-operative milestones. -No gas or BM yet. -Advance diet as tolerated. (2) Post traumatic stress disorder (PTSD) Current Visit: Yes Status: Acute Patient unable to relax or sleep. Psych consult recommending treatment with 0.5 Klonopin PRN. -We will schedule 0.5 Klonopin. -Will continue to monitor with close outpatient FU at the [place]. (3) Anemia Current Visit: Yes Status: Acute Patient's pallor has improved. She reports her dizziness and lightheadedness has improved. Hemoglobin has been stable since surgery. Patient is still tachycardic, though improving. -Patient with considerable post-op anxiety, will treat anxiety per psych recs with Klonopin. If tachycardia persistent after treating anxiety, will consider another transfusion. -Continue to trend vitals. Qualifiers: Anemia type: other cause Other causes of anemia: acute posthemorrhagic Qualified Code(s): D62 - Acute posthemorrhagic anemia (4) Leukocytosis Current Visit: Yes Status: Acute Likely secondary to antepartum steroid administration. -Due to patient's blood loss and transfusion, we will continue Abx administration, but switch to PO. Day #1 PO ceftin and PO flagyl. -Patient WBC trending down. Qualifiers: Leukocytosis type: unspecified Qualified Code(s): D72.829 - Elevated white blood cell count, unspecified Subjective - Subjective Principal diagnosis: S/P Vasa Previa Section Interval history: 36 yo female s/p for vasa previa and painful contractions. Patient reports tremendous difficulty in relaxing enough to sleep. She states psychiatry recommended klonopin but it has not been given. She desires to have her baby in the room and states his breathing is much improved. She does report improvement in dizziness and lightheadedness, but does state she still feels this way when ambulating. Her biggest complaint is diffuse lower extremity swelling which feels uncomfortable. She does also report some mild SOB, however , no chest pain, nausea, vomitting, diaphoresis, headaches, fever, or chills. Patient reports: appetite normal, voiding normally, pain well controlled, ambulating normally, other (Diffuse swelling and discomfort) [place]: in NICU, other (Mom pumping) Objective - Vital Signs Latest vital signs: Vital Signs Temp Pulse Resp BP Pulse Ox 09/29/17 08:03 98.1 F 101 14 100/65 96 09/29/17 03:30 97.8 F 93 16 87/58 96 09/28/17 23:35 98.3 F 98 16 103/61 99 09/28/17 21:15 98.3 F 108 18 100/61 99 09/28/17 17:00 98.5 F 111 16 101/67 95 09/28/17 12:50 98.3 F 108 16 91/55 95 Intake and Output 09/28/17 09/29/17 09/29/17 23:59 07:59 15:59 Intake Total 240 / 240 240 / 240 Output Total 1000 / 1000 600 / 600 200 / 200 Balance -760 / -760 -360 / -360 -200 / -200 Intake: Oral 240 / 240 240 / 240 Output: Urine 600 / 600 200 / 200 Catheter 1000 / 1000 Other: Weight 72.28 kg Patient Weight 09/29/17 23:59 Weight 72.28 kg - Exam Lungs: bilateral: normal Chest: Normal S2, Abnormal S1 (systolic ejection murmur) Extremities: Present: edema (1+ pitting edema) Abdomen: Present: distention (mild). Absent: rigidity Incision: Present: dry, intact, dressed. Absent: erythematous, warm Uterus: Present: firm Fundal Height: 1 (below umbilicus) - Labs Labs: Laboratory Results - last 24 hr 09/27/17 09/28/17 09/29/17 17:38 12:31 06:10 WBC 24.0 H 21.2 H RBC 3.03 L 2.84 L Hgb 8.9 L 8.4 L Hct 25.7 L 24.1 L MCV 84.8 84.9 MCH 29.4 29.6 MCHC 34.6 34.9 RDW 13.3 13.7 Plt Count 202 206 MPV 9.5 9.5 Immature Gran % 1.3 1.5 Seg Neutrophils % 75.3 70.1 Lymphocytes % 11.8 16.6 Monocytes % 11.4 11.3 Eosinophils % 0.0 0.1 Basophils % 0.2 0.4 Neutrophils # 18.1 H 14.8 H Lymphocytes # 2.8 3.5 Monocytes # 2.7 H 2.4 H Eosinophils # 0.0 0.0 Basophils # 0.1 0.1 Nucleated RBCs/100 WBC 0.2 H 0.2 H Crossmatch See Detail
[2017-09-29] MEDS: Prenatal Vit/FA 1 EACH TABLET PO SCH (08:58)
[2017-09-29] MEDS: clonazePAM 0.5 MG TABLET PO SCH ×2 (08:59→21:16)
[2017-09-29] MEDS: metroNIDAZOLE 500 MG TABLET PO SCH ×2 (15:24→21:16)
[2017-09-30] MEDS: Ibuprofen 600 MG TABLET PO PRN ×2 (00:20→09:37)
[2017-09-30] MEDS: *HR* OxyCODONE/APAP 10/325 TABLET PO PRN ×2 (04:05→09:37)
[2017-09-30] MEDS: Cefuroxime PO 500 MG TABLET PO SCH (07:35)
[2017-09-30 08:16] VITALS: BP 102/67
[2017-09-30] MEDS: metroNIDAZOLE 500 MG TABLET PO SCH ×2 (09:38→09:43)
[2017-09-30] MEDS: Prenatal Vit/FA 1 EACH TABLET PO SCH ×2 (09:38→09:43)
[2017-09-30] MEDS: clonazePAM 0.5 MG TABLET PO SCH (09:38)
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
[2017-09-30] MEDS ORDERED: MOM Conc 10 ML UD.LIQ PO ONE (10:27)
== END 2017-09-30 12:15 | disposition home or self-care (01) | DRG 765 ==
LOC: 1NENULAB → 1NENUOBS 00:48
PROVIDERS: ADMIT Student in an Organized Health Care Education/Training Program; ATTEND Student in an Organized Health Care Education/Training Program